=== PATIENT | female | born 1970 | race African-American/Black ===

== ENCOUNTER 2017-07-30 16:07 | Emergency (ER) | payer SELFPAY ==
[~2017-07-30] VITALS: Ht 160 cm; Wt 71.2 kg
[2017-07-30 16:20] VITALS: BP 112/73
[2017-07-30] MEDS ORDERED: CYCL10TA2 PO (16:41)
[2017-07-30] MEDS ORDERED: PRED20TA PO (16:41)
--- NOTE | 2017-07-30 16:41 | PHYS DOC ---
Past Medical History Past Medical History: Asthma Past Surgical History: No Surgical History Alcohol Use: None Drug Use: None Adult General Chief Complaint Chief Complaint: LOWER BACK PAIN OR INJURY [facility] HPI Patient is a 47 year old female presents to the emergency department stating that she developed right lower back pain that radiates around to the front of her leg. She states this is been going on for the last 3 days. She states that she's been taken 400 mg of ibuprofen twice a day with no relief. Patient states that she had been seen at [facility] for the same type of pain and discomfort was placed on Flexeril with no relief. Patient states she has increased pain whenever she is sitting or standing. She states that she has increased difficulty getting into a position of comfort. She denies any urinary symptoms. Review of Systems Review of Systems Constitutional: Denies fever or chills [] Eyes: Denies change in visual acuity, redness, or eye pain [] HENT: Denies nasal congestion or sore throat [] Respiratory: Denies cough or shortness of breath [] Cardiovascular: No additional information not addressed in HPI [] GI: Denies abdominal pain, nausea, vomiting, bloody stools or diarrhea [] : Denies dysuria or hematuria [] Musculoskeletal: Right lower back pain denies joint pain [] Integument: Denies rash or skin lesions [] Neurologic: Denies headache, focal weakness or sensory changes [] Endocrine: Denies polyuria or polydipsia [] Allergies Allergies Allergies Coded Allergies Type Severity Reaction Last Updated Verified Penicillins Allergy Intermediate 08/12/14 Yes Physical Exam Physical Exam Constitutional: Well developed, well nourished, no acute distress, non-toxic appearance. [] HENT: Normocephalic, atraumatic, bilateral external ears normal, oropharynx moist, no oral exudates, nose normal. [] Eyes: PERRLA, EOMI, conjunctiva normal, no discharge. [] Neck: Normal range of motion, no tenderness, supple, no stridor. [] Cardiovascular:Heart rate regular rhythm, no murmur [] Lungs & Thorax: Bilateral breath sounds clear to auscultation [] Abdomen: Bowel sounds normal, soft, no tenderness, no masses, no pulsatile masses. [] Skin: Warm, dry, no erythema, no rash. [] Back: No thoracic spine, lumbar spine tenderness, no crepitus, no deformity, no step-offs noted. Patient with tenderness noted to the right paraspinal area over the lower back area. Peripheral pulses 2+ cap refill brisk < 2 seconds. Cap refill brisk < 2 seconds. Extremities: No tenderness, no cyanosis, no clubbing, ROM intact, no edema. [] Neurologic: Alert and oriented X 3, normal motor function, normal sensory function, no focal deficits noted. [] Psychologic: Affect normal, judgement normal, mood normal. [] EKG EKG [] Radiology/Procedures Radiology/Procedures [] Course & Med Decision Making Course & Med Decision Making Pertinent Labs and Imaging studies reviewed. (See chart for details) Patient was provided with Toradol and Solu-Medrol injection here in the emergency department. She was recommended to use ibuprofen 800 mg every 8 hours with food stop taking few develop an upset stomach. Patient was also instructed that Flexeril will cause drowsiness do not take any be alert and oriented. She' ll also be provided with prednisone. Patient was also instructed to use ice packs on 20 minutes off 20 minutes several times a day. Spoke with patient in proper body mechanics when sitting and sleeping. Patient will be discharged home in stable condition with recommendations to follow-up with [facility] in the next week. Signs symptoms to return back to emergency department as been provided. [] Dragon Disclaimer Dragon Disclaimer This electronic medical record was generated, in whole or in part, using a voice recognition dictation system. Departure Departure Impression: Primary Impression: Back pain with sciatica Disposition: HOME, SELF-CARE Condition: STABLE Referrals: NO PCP (PCP) Patient Instructions: Sciatica with [facility], Sciatica, [id number] Additional Instructions: Activity as tolerated. Medications as prescribed. Flexeril will cause drowsiness do not take any be alert and oriented. Ibuprofen 800 mg every 8 hours with food stop taking few develop upset stomach. Ice packs on 20 minutes off 20 minutes several times a day. Proper body mechanics is important. Follow-up with your primary care physician in the next week. Return back to emergency department sign symptoms of become worse. Scripts Cyclobenzaprine Hcl (CYCLOBENZAPRINE HCL) 10 Mg Tablet 1 TAB PO TID Y for MUSCLE SPASMS, #30 TAB Prov: MITCHELL SUN PHOTOGRAMMETRIC ENGINEER 07/30/17 Prednisone (PREDNISONE) 20 Mg Tablet 40 MG PO DAILY for 7 Days, #14 TAB Prov: MITCHELL SUN APRN 07/30/17 MITCHELL SUN APRN Jul 30, 2017 16:41
[2017-07-30] MEDS ORDERED: KETOROLAC 60 MG/2 ML INJ. IM ONE (16:45)
[2017-07-30] MEDS ORDERED: methylPREDNISolone SOD SUCC PF 125 MG/2 ML VIAL. IM ONE (16:45)
== END 2017-07-30 17:00 | disposition home or self-care (01) ==
LOC: ER 16:07
DX: M54.41 Lumbago with sciatica, right side (principal); J45.909 Unspecified asthma, uncomplicated; Z88.0 Allergy status to penicillin
CPT/HCPCS: 96372; 99284; J1885; J2930

== ENCOUNTER 2018-05-28 18:35 | Emergency (ER) | payer SELFPAY ==
[2018-05-28] MEDS ORDERED: HYDROcodone/APAP 5/325MG 1 TAB TABLET (20:58)
[2018-05-28] MEDS: HYDROcodone/APAP 5/325MG 1 TAB TABLET PO (21:01)
[2018-05-28] MEDS: ONDANSETRON ODT 4 MG TAB.RAPDIS. PO (21:01)
== END 2018-05-28 21:05 | disposition home or self-care (01) ==
LOC: ER 21:05
DX: K04.7 Periapical abscess without sinus (principal); J45.909 Unspecified asthma, uncomplicated; Z88.0 Allergy status to penicillin
CPT/HCPCS: 99283; Q0162

== ENCOUNTER 2021-03-24 18:00 | Emergency (ER) | payer SELFPAY ==
[~2021-03-24] VITALS: Ht 160 cm; Wt 74.1 kg
[~2021-03-24 18:00] MED LIST: CLIN300C9 PO; CYCL10TA2 PO; PRED20TA PO
--- NOTE | 2021-03-24 18:21 | PHYS DOC ---
Past Medical History Past Medical History: Asthma Additional Past Medical Histor: back problems Past Surgical History: No Surgical History Smoking Status: Current Every Day Smoker Alcohol Use: None Drug Use: None General Adult EDM: Chief Complaint: ASTHMA HPI: HPI: Patient is a 51-year-old female presenting for cough. Patient was seen at [facility] approximately 1 week ago, had comprehensive work-up and states "they did not do anything for me, they just kicked me out". On review, it appears patient was diagnosed with an upper respiratory infection and given Tessalon Perles for her cough. She has been using an epinephrine bronchodilator inhaler that she purchased with her own money [id number] without significant relief in symptoms. She has history of asthma, does not see a primary care physician, has never had pulmonary function testing performed. Denies any other known medical issues, takes no other medications. She smokes cigarettes and marijuana daily, denies any other significant illicit drug or alcohol use. Reports she has been short of breath "for a while", admits increased shortness of breath without sputum production. No concerning signs or symptoms of blood clot/PE/DVT such as hemoptysis, hormone use, prolonged travel etc. There has been no fever, known sick contacts, chest pain, abdominal pain, neurologic changes reported Review of Systems: Review of Systems: Fourteen body systems of review of systems have been reviewed. See HPI for pertinent positives and negative responses, other lentz all other systems are negative, non-pertinent or non-contributory Heart Score: C/O Chest Pain: No HEART Score for Chest Pain: HEART Score for Chest Pain Response (Comments) Value History Slighlty/Non-Suspicious 0 ECG Normal 0 Age >45 - < 65 1 Risk Factors 1 or 2 Risk Factors 1 Troponin < Normal Limit 0 Total 2 Risk Factors: Risk Factors: DM, Current or recent (<one month) smoker, HTN, HLP, family history of CAD, obesity. Risk Scores: Score 0 - 3: 2.5% MACE over next 6 weeks - Discharge Home Score 4 - 6: 20.3% MACE over next 6 weeks - Admit for Clinical Observation Score 7 - 10: 72.7% MACE over next 6 weeks - Early Invasive Strategies Allergies: Allergies: Allergies Coded Allergies Type Severity Reaction Last Updated Verified Penicillins Allergy Intermediate 08/12/14 Yes Physical Exam: PE: Constitutional: Well developed, well nourished, no acute distress, non-toxic appearance. HENT: Normocephalic, atraumatic, bilateral external ears normal, oropharynx moist with postnasal drip present, no oral exudates, nose normal. Eyes: PERRLA, EOMI, conjunctiva normal, no discharge. Neck: Normal range of motion, no tenderness, supple, no stridor. Cardiovascular: Heart rate regular, sinus rhythm, no murmurs rubs or gallops Lungs & Thorax: No obvious respiratory distress, patient is tachypneic without accessory muscle use noted, there are crackles and end expiratory wheezes prominent in bilateral lungs Abdomen: Bowel sounds normal, soft, no tenderness, no masses, no pulsatile masses. Nonsurgical abdomen, no peritoneal signs Skin: Warm, dry, no erythema, no rash. Back: No tenderness, no CVA tenderness. Extremities: No tenderness, no cyanosis, no clubbing, ROM intact, no edema. Neurologic: Alert and oriented X 3, grossly normal motor & sensory function, no focal deficits noted. Psychologic: Affect normal, judgement normal, mood normal. EKG: EKG: EKG ordered and interpreted by myself at 1854 hrs. as sinus rhythm at 56 bpm, unremarkable intervals, no axis deviation, no ischemic findings, no STEMI Radiology/Procedures: Radiology/Procedures: EXAM: Chest, single view. HISTORY: Shortness of breath. COMPARISON: 08/12/2014 FINDINGS: A frontal view of the chest is obtained. There is no infiltrate, pleural effusion or pneumothorax. The heart is normal in size. IMPRESSION: No acute pulmonary finding. Electronically signed by: Trina Echevarria MD (03/24/2021 7:24 PM) [facility] Course & Med Decision Making: Course & Med Decision Making Pertinent Labs and Imaging studies reviewed. (See chart for details) [] Dragon Disclaimer: Dragon Disclaimer: This electronic medical record was generated, in whole or in part, using a voice recognition dictation system. Departure Departure Impression: Primary Impression: Asthma exacerbation Additional Impression: Viral syndrome Disposition: HOME / SELF CARE / HOMELESS Condition: IMPROVED Referrals: NO PCP (PCP) Patient Instructions: Asthma, Acute Bronchospasm, Viral Syndrome Additional Instructions: You were seen for an asthma exacerbation. Your exacerbation was likely caused by an upper respiratory tract infection. You should be checking your peak flows d aily and taking all of your controller and rescue inhalers as previously prescribed. Any new medications today, please take those as prescribed as well. It may take a few days for the steroids to begin to work, but use albuterol as needed for the next few days to help with symptoms. Return to the ED if you develop worsening cough, shortness of breath, fever > 101, chest pain, or any other new or concerning symptoms. You need to follow up with your primary care doctor as soon as possible as a severe asthma exacerbation can be fatal. Scripts Albuterol Sulfate (PROAIR HFA INHALER) 8.5 Gm Hfa.aer.ad 1 PUFF INH PRN Q6HRS PRN for SHORTNESS OF BREATH, #1 EACH 0 Refills Prov: MEHDI LUU DO 03/24/21 Prednisone (PREDNISONE) 50 Mg Tablet 1 TAB PO DAILY, #4 TAB Prov: MEHDI LUU DO 03/24/21 MEHDI LUU DO March 24, 2021 18:21
[2021-03-24] MEDS ORDERED: predniSONE 10 MG TABLET PO ONE (18:30)
[2021-03-24] MEDS ORDERED: IPRATRPIUM/ALBUTEROL 0.5/2.5MG 3 ML NEBU. NEB ONE (18:30)
--- NOTE | 2021-03-24 19:26 | RAD ---
EXAM: Chest, single view. HISTORY: Shortness of breath. COMPARISON: 08/12/2014 FINDINGS: A frontal view of the chest is obtained. There is no infiltrate, pleural effusion or pneumo thorax. The heart is normal in size. IMPRESSION: No acute pulmonary finding. Electronically signed by: Trina Echevarria MD (03/24/2021 7:24 PM) [facility]
[2021-03-24 20:20] VITALS: BP 123/71
[2021-03-24] MEDS ORDERED: PRED50TA PO (20:21)
[2021-03-24] MEDS ORDERED: ALBU2.5V8 INH (20:21)
--- NOTE | 2021-03-25 08:34 | EKG ---
[facility] [address] [place] [address] Test Date: 2021-03-24 Test Time: 18:46:54 Pat Name: MELYSSA VENCES Department: Room: Gender: F [employer]cer: : 1970 Requested By: MEHDI LUU Order Number: [id number] Reading MD: Measurements Intervals Raymond Rate: 56 P: -42 ID: [id number] QRS: 65 QRSD: 78 T: 61 QT: 442 QTc: 429 Interpretive Statements SINUS RHYTHM NORMAL ECG RI6.01 No previous ECG available for comparison
== END 2021-03-24 20:20 | disposition home or self-care (01) ==
LOC: ER 18:00
DX: J45.901 Unspecified asthma with (acute) exacerbation (principal); B34.9 Viral infection, unspecified; F17.200 Nicotine dependence, unspecified, uncomplicated; Z88.0 Allergy status to penicillin
CPT/HCPCS: 71045; 81025; 93005; 94640; 99284; J7512